=== PATIENT | male | born 1950 | race Caucasian/White ===

== ENCOUNTER → 2017-01-17 | Outpatient (CLI) | payer MEDICARE, BC ==
[~2017-01-17] MED LIST: ASPIRIN81 M2 PO; BACLOFEN10 MG PO; CALCIUM 600 + D1 TA1 PO; COQ-1010 MG PO; DOXAZOSIN MESYLA4 MG PO; FINASTERIDE5 MG PO; GABAPENTIN300 M2 PO; HYDROCODON-ACE1 EAC5 PO; MELOXICAM15 MG PO; METAMUCIL POWD174 GM; MOBIC15 MG PO; MULTI VITAMIN1 EACH PO; PFIZERPEN-G5 MU IV; ROXICODONE5 MG PO; SIMVASTATIN40 MG PO
--- NOTE | ~2017-01-17 | CT127 ---
[facility] A Service of [facility] RADIOLOGY TEXT RESULTS PATIENT: CONCETTA SENA LOCATION: [facility] : 50 UNIT #: [id number] AGE: [address]: SELMA MARSHALL APRN SEX: M ORDER DR: [id number] [facility] [address] [place], [place] [address] [id number] O MR#: [id number] Acc #: [id number] NAME: CONCETTA SENA : 1950 SEX: M STUDY DATE/TIME: 01/17/2017 13:12 UNIT: [facility] ROOM: STUDY DESCRIPTION: CT Upper Ext Lt Wo Cont Attending Physician: Selma Marshall Aprn Referring Physician: Selma Marshall Aprn Ordering Physician: Selma Marshall Aprn Primary Care Physician: Pedro David M.D. MEDICAL IMAGING REPORT This report is preliminary unless electronic signature is present EXAM CT left shoulder. HISTORY Preop evaluation for left shoulder replacement. Study performed according to [facility] protocol. Complains of shoulder pain progressively worse since 2012. Evaluate for excessive glenoid wear. TECHNIQUE Limited axial images performed through the left shoulder. This CT exam was performed with one or more of the following radiation dose reduction techniques: automatic exposure control, adjustment of mA and/or kV according to patient size, and iterative reconstruction. FINDINGS Spacer is noted within the proximal humerus and humeral head. There is deformity of the glenoid with widening of the glenoid fossa and diffuse thinning of the glenoid along its anterior and posterior aspects. This suggest excessive glenoid wear. A small amount of subchondral cystic change noted along the posterior glenoid. No definite joint effusion or loose body. 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 Deltoid musculature unremarkable. Spacer appears in expected position and alignment. Visualized left thorax remarkable for old granulomas disease. IMPRESSION Preoperative evaluation for left shoulder arthroplasty. Spacer appears in expected position alignment. There is deepening and widening of the glenoid fossa with thinning of the cortex which may indicate excessive glenoid wear. Dictated by... [facility] A Service of [facility] RADIOLOGY TEXT RESULTS PATIENT: CONCETTA SENA LOCATION: [facility] : 50 UNIT #: [id number] AGE: [address]: SELMA MARSHALL APRN SEX: M ORDER DR: Terry Calero M.D. THIS IS AN ELECTRONICALLY VERIFIED REPORT Terry Calero M.D. at 01/20/2017 4:50 PM Dell TD: 01/17/2017 22:20 JOB #: [id number] MEDICAL IMAGING REPORT Page 1 of 1 COPY
== END | disposition home or self-care (01) ==
LOC: CCAT 01-16 14:30
DX: Z01.818 Encounter for other preprocedural examination (principal); M25.512 Pain in left shoulder; Z96.612 Presence of left artificial shoulder joint
CPT/HCPCS: 73200